=== PATIENT | female | born 1975 | race Caucasian/White ===

== ENCOUNTER 2017-05-28 23:50 | Emergency (ER) | payer OTHER ==
[2017-05-29] MEDS ORDERED: Ketorolac 60 MG/2 ML SDV IM ONE (00:07)
--- NOTE | 2017-05-29 01:41 | EDM.PDOC ---
ED HPI GENERAL MEDICAL PROBLEM - General Chief Complaint: Back Pain or Injury Stated Complaint: LOWER BACK PAIN AND RIGHT LEG Time Seen by Provider: 05/28/17 23:50 Source of Information: Reports: Patient, Family History Limitations: Reports: No Limitations - History of Present Illness INITIAL COMMENTS - FREE TEXT/NARRATIVE: 41 y.o.w.f with a h/o low back pain, Deg disc disease with pain radiating down to her right lateral thigh, came to the ed because he pain is worse today. No trauma, no stool or urine incontinence. Pt was seen at the pain clinic. Mobic and Flexeril were prescribed. Those pain meds did not help today. Her next pain clinic appointment is August 2017. No other acute medical issues. BP 137/89 pulse 76 RR 17 Pulse ox 98% on RA Temp 36.7 Onset Date: 05/28/17 Onset Time: 17:00 Duration: Hour(s): Location: Reports: Back, Lower Extremity, Right Quality: Reports: Ache, Burning, Dull, Same as Previous Episode Severity: Moderate Improves with: Reports: Rest Worsens with: Reports: Movement Context: Reports: Other (chronich low back pain with H/O discdegenaration) lower back radiating to Rt leg Pain Score (Numeric/FACES): 8 - Related Data Allergies Allergy/AdvReac Type Severity Reaction Status Date / Time latex Allergy Mild Rash Verified 05/29/17 00:31 Penicillins Allergy Rash Verified 05/29/17 00:31 Home Meds: Home Meds Albuterol Sulfate [Proair Hfa] 2 puff PO QID PRN 01/05/14 [History] Budesonide/Formoterol Fumarate [Symbicort 160-4.5 Mcg Inhaler] 2 puff PO BID 10/08 [History] DULoxetine [Cymbalta] 30 mg PO BEDTIME 05/29/17 [History] Meloxicam 15 mg PO DAILY 05/29/17 [History] Orphenadrine [Norflex] 100 mg PO BID PRN #20 tab.er 05/29/17 [Rx] Past Medical History Respiratory History: Reports: Asthma 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 Psychiatric History: Reports: Anxiety, Depression, Panic Attack - Past Surgical History Other HEENT Surgeries/Procedures: wisdome teeth removed Social & Family History - Family History Family Medical History: Noncontributory - Tobacco Use Smoking Status *Q: Never Smoker Years of Tobacco use: 4 - Caffeine Use Caffeine Use: Reports: Soda - Alcohol Use Days Per Week of Alcohol Use: 0 - Recreational Drug Use Recreational Drug Use: No ED ROS GENERAL - Review of Systems Review Of Systems: See Below Constitutional: Reports: No Symptoms HEENT: Reports: No Symptoms Respiratory: Reports: No Symptoms Cardiovascular: Reports: No Symptoms Endocrine: Reports: No Symptoms GI/Abdominal: Reports: No Symptoms : Reports: No Symptoms Musculoskeletal: Reports: Back Pain Skin: Reports: No Symptoms Neurological: Reports: No Symptoms Psychiatric: Reports: No Symptoms Hematologic/Lymphatic: Reports: No Symptoms Immunologic: Reports: No Symptoms ED EXAM,LOWER BACK PAIN/INJURY - Physical Exam Exam: See Below Exam Limited By: No Limitations General Appearance: Alert, WD/WN, Mild Distress Eye Exam: Bilateral Eye: Normal Inspection Ears: Normal External Exam Nose: Normal Inspection, Normal Mucosa Throat/Mouth: Normal Inspection, Normal Lips, Normal Voice, No Airway Compromise Head: Atraumatic, Normocephalic Neck: Normal Inspection, Supple, Non-Tender, Full Range of Motion Respiratory/Chest: No Respiratory Distress, Lungs Clear, Normal Breath Sounds Cardiovascular: Normal Peripheral Pulses, Regular Rate, Rhythm, No Edema, No Gallop GI/Abdominal: Normal Bowel Sounds, Soft, Non-Tender, No Organomegaly (Female) Exam: Deferred Rectal (Female) Exam: Deferred Back Exam: Normal Inspection Extremities: Normal Inspection, Normal Range of Motion, Non-Tender, Normal Capillary Refill Neurological: Alert, Normal Mood/Affect, Normal Dorsiflexion, Normal Plantar Flexion, Normal Gait Psychiatric: Normal Affect, Normal Mood Skin Exam: Warm, Dry, Intact, Normal Color, No Rash Lymphatic: No Adenopathy Course - Vital Signs Text/Narrative:: 41 y.o.w.f with a h/o low back pain, Deg disc disease with pain radiating down to her right lateral thigh, came to the ed because he pain is worse today. No trauma, no stool or urine incontinence. Pt was seen at the pain clinic. Mobic and Flexeril were prescribed. Those pain meds did not help today. Her next pain clinic appointment is August 2017. No other acute medical issues. BP 137/89 pulse 76 RR 17 Pulse ox 98% on RA Temp 36.7 PE: WNWD W F which exacerbation of chronic low back pain Impression: Exacerbation of chronic low back pain Tx: Toradol, Norflex Reexam: Improved from 11/30 to 04/30 Plan: D/C with instructions Last Recorded V/S: Last Vital Signs Temp 36.6 C 05/29/17 01:27 Pulse 73 05/29/17 01:27 Resp 18 05/29/17 01:27 BP 134/86 05/29/17 01:27 Pulse Ox 99 05/28/17 23:50 - Orders/Labs/Meds Orders: Active Orders 24 hr Category Date Time Status Ice Bag [Ice Therapy] [OM.PC] Routine Oth 05/29/17 00:07 Ordered Meds: Medications Discontinued Medications Generic Name Dose Route Start Last Admin Trade Name Freq PRN Reason Stop Dose Admin Ketorolac Tromethamine 60 mg 05/29/17 00:07 05/29/17 00:39 Toradol IM 05/29/17 00:08 60 mg ONETIME ONE Administration Orphenadrine Citrate 60 mg 05/29/17 00:15 05/29/17 00:34 Norflex IM 60 mg Q12H YOGI Administration Departure - Departure Time of Disposition: 01:37 Disposition: Home, Self-Care 01 Condition: Good Clinical Impression: Back pain at L4-L5 level - Discharge Information Prescriptions: Orphenadrine [Norflex] 100 mg PO BID PRN #20 tab.er PRN Reason: back spasm Instructions: Back Exercises, Back Pain, Adult, [id number] Referrals: Markie Robledo MD [Primary Care Provider] - Forms: ED Department Discharge Additional Instructions: Please apply ICE to lower back, please take Norfex for back spasm, Motin for moderate pain. Please cont your current meds, f/u with your PMD, come back to the ED if your symptoms get worse acutely. - My Orders Last 24 Hours: My Active Orders 05/29/17 00:07 Ice Bag [Ice Therapy] [OM.PC] Routine - Assessment/Plan Last 24 Hours: My Active Orders 05/29/17 00:07 Ice Bag [Ice Therapy] [OM.PC] Routine
== END 2017-05-29 01:47 | disposition home or self-care (01) ==
LOC: FB.ED 23:50
DX: M54.5 Low back pain (principal); G89.29 Other chronic pain; Z88.0 Allergy status to penicillin; Z91.040 Latex allergy status; J45.909 Unspecified asthma, uncomplicated; Z79.899 Other long term (current) drug therapy
CPT/HCPCS: 96372; 99283; J1885; J2360

== ENCOUNTER 2023-03-27 11:25 | Emergency (ER) | payer OTHER ==
[2023-03-27] MEDS: Cyclobenzaprine 10 MG Tab PO ONE (11:56)
[2023-03-27] MEDS: Lidocaine 4% 1 each Patch TOP STA (11:56)
[2023-03-27] MEDS: Ketorolac 30 MG/ML SDV IM ONE (11:57)
== END 2023-03-27 12:43 | disposition home or self-care (01) ==
LOC: FB.ED 11:25
DX: M43.6 Torticollis (principal); J45.909 Unspecified asthma, uncomplicated; Z79.899 Other long term (current) drug therapy; Z88.0 Allergy status to penicillin; Z91.040 Latex allergy status
CPT/HCPCS: 96372; 99283; A9270-GY; J1885